=== PATIENT | male | born 2000 | race African-American/Black ===

== ENCOUNTER 2022-10-29 20:08 | Emergency (ER) | payer OTHER ==
[2022-10-29 20:17] VITALS: BP 127/86; PULSE 71; RESP 18; TEMP 98; BMI 23.1
== END 2022-10-29 21:22 | disposition home or self-care (01) ==
LOC: JERFT 20:08 → EDBD 20:08 → JERFT 21:22
PROC: 0H9GXZZ Drainage of Left Hand Skin, External Approach (ICD-10-PCS; principal; 2022-10-29)
DX: L03.012 Cellulitis of left finger (principal)
CPT/HCPCS: 10060; 99283-25